=== PATIENT | male | born 1950 | race Caucasian/White ===

== ENCOUNTER 2017-02-24 19:51 | Inpatient (IN) | payer OTHER ==
[~2017-02-24] VITALS: Ht 195.6 cm; Wt 138.8 kg
[2017-02-24 19:51] VITALS: BP_SYST 108
[2017-02-24] MEDS ORDERED: NS 1000 ML BAG IV ONE (20:30)
[2017-02-24] MEDS ORDERED: KETOROLAC TROMETHAMINE 30 MG VIAL IVP ONE (20:30)
[2017-02-24 20:44] LABS: BASOPHILS % (AUTO) 0.2 % (0.0-2.0); EOSINOPHILS # (AUTO) 0.1 K/uL (0.0-0.4); EOSINOPHILS % (AUTO) 0.7 % (0.0-4.0); HEMATOCRIT 32.9 % (36-54); HEMOGLOBIN 11.2 g/dL (14.0-18.0); LYMPHOCYTES # (AUTO) 0.4 K/uL (1.0-5.5); MEAN CORPUSCULAR HEMOGLOBIN 31 pg (27-31); MEAN CORPUSCULAR HGB CONC 34 % (32-36); MEAN CORPUSCULAR VOLUME 90 fL (79.0-98.0); MONOCYTES # (AUTO) 0.6 K/uL (0.0-1.0); NEUTROPHILS # (AUTO) 11.6 K/uL (1.8-7.7); NEUTROPHILS % (AUTO) 91.1 % (40.0-70.0); RED BLOOD CELL COUNT(AUTO) 3.67 MIL/uL (4.2-6.2); RED CELL DISTRIBUTION WIDTH 14.9 % (9.0-15.0); WHITE BLOOD COUNT (AUTO) 12.8 K/uL (4.8-10.8)
[2017-02-24 20:49] LABS: INR 1.4 (0.80-1.20); PROTHROMBIN TIME 14.9 SECS (9.5-12.5)
[2017-02-24 21:01] LABS: PLATELET COUNT (AUTO) 93 K/uL (130-430)
[2017-02-24] MEDS ORDERED: PROP10TA10 PO (21:08)
[2017-02-24] MEDS ORDERED: LEVO25TA7 PO (21:08)
[2017-02-24] MEDS ORDERED: TERA5CAP58 PO (21:08)
[2017-02-24] MEDS ORDERED: HYDR-3698 PO (21:08)
[2017-02-24] MEDS ORDERED: HYT1 GT (21:08)
[2017-02-24] MEDS ORDERED: CETI-354 PO (21:08)
[2017-02-24] MEDS ORDERED: OMEP40CA33 PO (21:08)
[2017-02-24] MEDS ORDERED: VITD2000 PO ×2 (21:08)
[2017-02-24] MEDS ORDERED: LACT10SO6 PO (21:08)
[2017-02-24] MEDS ORDERED: LIP10 PO (21:08)
[2017-02-24] MEDS ORDERED: MAGN400T10 PO (21:08)
[2017-02-24] MEDS ORDERED: MIRT15TA7 PO (21:08)
[2017-02-24] MEDS ORDERED: ALBU2.5V7 INH (21:08)
[2017-02-24] MEDS ORDERED: GABA-531 PO (21:08)
[2017-02-24] MEDS ORDERED: FERR-57 PO (21:08)
[2017-02-24] MEDS ORDERED: SPIR25TA4 PO (21:08)
[2017-02-24] MEDS ORDERED: MORPHINE 4 MG/ML INJ. SYRINGE IVP ONE (22:15)
[2017-02-24] MEDS ORDERED: PIPERACILLIN/TAZO 3.375 GM in NS 50 ML IV ONE (22:30)
[2017-02-24] MEDS ORDERED: VANCOMYCIN HCL 1,000 MG in NS 250 ML IV ONE (22:30)
[2017-02-24 22:31] LABS: BLOOD, URINE 1+ (NEGATIVE); COLOR,URINE AMBER (YELLOW); GLUCOSE,URINE NEGATIVE (NEGATIVE); KETONES,URINE TRACE (NEGATIVE); LEUKOCYTE ESTERASE ,URINE NEGATIVE (NEGATIVE); NITRITE, URINE NEGATIVE (NEGATIVE); PH,URINE 5.5 (5.0-8.0); PROTEIN URINE 2+ (NEGATIVE)
[2017-02-24 22:37] LABS: BILIRUBIN,URINE NEGATIVE (NEGATIVE); CLARITY/URINE HAZY (CLEAR)
[2017-02-24 22:39] LABS: BACTERIA,URINE FEW /HPF (None Seen); HYALINE CASTS, URINE 0-10 /LPF (None Seen); MUCUS,URINE None Seen /LPF (None Seen); RBC,URINE 0-3 /HPF (0-3); WBC,URINE 0-3 /HPF (0-3)
[2017-02-24] MEDS ORDERED: VANCOMYCIN HCL 1000 MG/VIAL IV ONE ×2 (22:49)
[2017-02-24] MEDS ORDERED: PIPERACILLIN/TAZOBACTAM 3.375 GM/VIAL (ZOSYN) IV ONE (22:50)
[2017-02-24 22:57] LABS: CALCIUM 8.2 mg/dL (8.4-11.0); CREATININE 1.7 mg/dL (0.55-1.30); POTASSIUM 3.9 mmol/L (3.5-5.1)
[2017-02-24 23:03] LABS: TOTAL BILIRUBIN 2.9 mg/dL (0.0-1.0); TOTAL PROTEIN, SERUM 7.7 g/dL (6.4-8.3)
[2017-02-24 23:10] VITALS: BP_SYST 113
[2017-02-24 23:50] VITALS: BP_SYST 125
[2017-02-25 04:50] VITALS: BP_SYST 136
[2017-02-25 10:11] VITALS: BP_SYST 133
[2017-02-25] MEDS ORDERED: ALBUTEROL SULFATE 0.083% 2.5 MG/3 ML VIAL.NEB INH PRN (11:15)
[2017-02-25] MEDS ORDERED: INSULIN REGULAR, HUMAN 100 UNITS/ML, 10 ML VIAL (novoLIN R) SUBCUT PRN (11:15)
[2017-02-25] MEDS ORDERED: DEXTROSE 50% JECT 50 ML DISP.SYRIN IVP PRN (11:15)
[2017-02-25 11:28] LABS: BASOPHILS # (AUTO) 0.1 K/uL (0.0-0.2); BASOPHILS % (AUTO) 0.6 % (0.0-2.0); EOSINOPHILS # (AUTO) 0.2 K/uL (0.0-0.4); EOSINOPHILS % (AUTO) 2.2 % (0.0-4.0); HEMATOCRIT 30.8 % (36-54); HEMOGLOBIN 10.1 g/dL (14.0-18.0); LYMPHOCYTES # (AUTO) 0.6 K/uL (1.0-5.5); LYMPHOCYTES % (AUTO) 5.6 % (20.5-51.5); MEAN CORPUSCULAR HEMOGLOBIN 29 pg (27-31); MEAN CORPUSCULAR HGB CONC 33 % (32-36); MEAN CORPUSCULAR VOLUME 89 fL (79.0-98.0); MONOCYTES # (AUTO) 0.9 K/uL (0.0-1.0); MONOCYTES % (AUTO) 8.3 % (1.7-9.3); NEUTROPHILS # (AUTO) 8.6 K/uL (1.8-7.7); NEUTROPHILS % (AUTO) 83.3 % (40.0-70.0); PLATELET COUNT (AUTO) 77 K/uL (130-430); RED BLOOD CELL COUNT(AUTO) 3.44 MIL/uL (4.2-6.2); RED CELL DISTRIBUTION WIDTH 15.3 % (9.0-15.0); WHITE BLOOD COUNT (AUTO) 10.4 K/uL (4.8-10.8)
[2017-02-25 11:36] LABS: CALCIUM 7.6 mg/dL (8.4-11.0); CREATININE 1.35 mg/dL (0.55-1.30); POTASSIUM 3.6 mmol/L (3.5-5.1)
[2017-02-25] MEDS ORDERED: GABAPENTIN 100 MG CAPSULE PO ONE (11:45)
[2017-02-25] MEDS ORDERED: CHOLECALCIFEROL (VITAMIN D3) 2,000 UNIT TABLET PO ONE (11:45)
[2017-02-25 12:20] VITALS: BP_SYST 132
[2017-02-25] MEDS: FERROUS SULFATE 325 MG TABLET.DR PO SCH ×2 (14:36→21:48)
[2017-02-25] MEDS: GABAPENTIN 300 MG CAPSULE PO SCH ×2 (14:36→21:48)
[2017-02-25] MEDS: PIPERACILLIN/TAZO 3.375/DEX-IS 50 ML IV SCH ×2 (14:37→21:48)
[2017-02-25 16:28] VITALS: BP_SYST 135
[2017-02-25 16:30] VITALS: BP_SYST 132
[2017-02-25 20:00] VITALS: BP_SYST 138
[2017-02-25] MEDS: LACTOBACILLUS RHAMNOSUS GG 1 CAP CAPSULE PO SCH (21:48)
[2017-02-25] MEDS: TERAZOSIN HCL 5 MG CAPSULE (HYTRIN) PO SCH (21:49)
[2017-02-25] MEDS: PROPRANOLOL HCL 10 MG TABLET (INDERAL) PO SCH (21:49)
[2017-02-25] MEDS: MIRTAZAPINE 15 MG TABLET PO SCH (21:49)
[2017-02-26 00:14] VITALS: BP_SYST 128
[2017-02-26 03:29] VITALS: BP_SYST 114
[2017-02-26] MEDS: PIPERACILLIN/TAZO 3.375/DEX-IS 50 ML IV SCH ×3 (05:07→21:39)
[2017-02-26] MEDS: LEVOTHYROXINE SODIUM 0.025 MG TABLET PO SCH (06:40)
[2017-02-26 07:47] LABS: BASOPHILS # (AUTO) 0.1 K/uL (0.0-0.2); BASOPHILS % (AUTO) 0.6 % (0.0-2.0); EOSINOPHILS # (AUTO) 0.4 K/uL (0.0-0.4); HEMATOCRIT 28.9 % (36-54); LYMPHOCYTES # (AUTO) 0.8 K/uL (1.0-5.5)
[2017-02-26 08:20] LABS: EOSINOPHILS % (AUTO) 3.7 % (0.0-4.0); HEMOGLOBIN 9.9 g/dL (14.0-18.0); LYMPHOCYTES % (AUTO) 8.1 % (20.5-51.5); MEAN CORPUSCULAR HEMOGLOBIN 30 pg (27-31); MEAN CORPUSCULAR HGB CONC 34 % (32-36); MEAN CORPUSCULAR VOLUME 88 fL (79.0-98.0); MONOCYTES # (AUTO) 1.1 K/uL (0.0-1.0); MONOCYTES % (AUTO) 11.2 % (1.7-9.3); NEUTROPHILS # (AUTO) 7.6 K/uL (1.8-7.7); NEUTROPHILS % (AUTO) 76.4 % (40.0-70.0); PLATELET COUNT (AUTO) 89 K/uL (130-430); RED BLOOD CELL COUNT(AUTO) 3.27 MIL/uL (4.2-6.2)
[2017-02-26] MEDS: GABAPENTIN 300 MG CAPSULE PO SCH ×3 (08:22→21:33)
[2017-02-26] MEDS: OMEPRAZOLE 20 MG CAPSULE.DR (PriLOSEC) PO SCH (08:23)
[2017-02-26] MEDS: LACTOBACILLUS RHAMNOSUS GG 1 CAP CAPSULE PO SCH ×2 (08:23→21:34)
[2017-02-26] MEDS: MAGNESIUM OXIDE 400 MG TABLET PO SCH (08:23)
[2017-02-26] MEDS: PROPRANOLOL HCL 10 MG TABLET (INDERAL) PO SCH ×2 (08:24→21:35)
[2017-02-26] MEDS: CHOLECALCIFEROL (VITAMIN D3) 2,000 UNIT TABLET PO SCH (08:25)
[2017-02-26] MEDS: FERROUS SULFATE 325 MG TABLET.DR PO SCH ×3 (08:25→21:34)
[2017-02-26] MEDS: ATORVASTATIN 10 MG TABLET PO SCH (08:25)
[2017-02-26 08:30] VITALS: BP_SYST 118
[2017-02-26 10:12] LABS: CALCIUM 7.7 mg/dL (8.4-11.0); CREATININE 1.11 mg/dL (0.55-1.30); POTASSIUM 3.8 mmol/L (3.5-5.1)
[2017-02-26 10:17] LABS: ALBUMIN 2.6 g/dL (3.4-4.8); TOTAL BILIRUBIN 1.8 mg/dL (0.0-1.0); TOTAL PROTEIN, SERUM 6.8 g/dL (6.4-8.3)
[2017-02-26 12:17] VITALS: BP_SYST 117
[2017-02-26] MEDS: VANCOMYCIN HCL 1,500 MG in NS 250 ML IV SCH (14:53)
[2017-02-26 16:25] VITALS: BP_SYST 120
[2017-02-26] MEDS: IPRATROPIUM/ALBUTEROL SULFATE 3 ML AMPUL.NEB INH SCH ×3 (18:43→23:17)
[2017-02-26 20:00] VITALS: BP_SYST 134
[2017-02-26] MEDS: MIRTAZAPINE 15 MG TABLET PO SCH (21:34)
[2017-02-26] MEDS: TERAZOSIN HCL 5 MG CAPSULE (HYTRIN) PO SCH (21:35)
[2017-02-27] VITALS (7 sets, daily range): BP systolic 115–133
[2017-02-27] MEDS: VANCOMYCIN HCL 1,500 MG in NS 250 ML IV SCH ×2 (01:35→14:04)
[2017-02-27] MEDS: IPRATROPIUM/ALBUTEROL SULFATE 3 ML AMPUL.NEB INH SCH ×4 (03:00→19:39)
[2017-02-27] MEDS: PIPERACILLIN/TAZO 3.375/DEX-IS 50 ML IV SCH (05:44)
[2017-02-27] MEDS: LEVOTHYROXINE SODIUM 0.025 MG TABLET PO SCH (07:05)
[2017-02-27] MEDS: LACTOBACILLUS RHAMNOSUS GG 1 CAP CAPSULE PO SCH ×2 (09:15→20:55)
[2017-02-27] MEDS: FERROUS SULFATE 325 MG TABLET.DR PO SCH ×3 (09:15→20:55)
[2017-02-27] MEDS: MAGNESIUM OXIDE 400 MG TABLET PO SCH (09:15)
[2017-02-27] MEDS: OMEPRAZOLE 20 MG CAPSULE.DR (PriLOSEC) PO SCH (09:15)
[2017-02-27] MEDS: ATORVASTATIN 10 MG TABLET PO SCH (09:15)
[2017-02-27] MEDS: GABAPENTIN 300 MG CAPSULE PO SCH ×3 (09:16→20:55)
[2017-02-27] MEDS: PROPRANOLOL HCL 10 MG TABLET (INDERAL) PO SCH ×2 (09:16→20:55)
[2017-02-27] MEDS: CHOLECALCIFEROL (VITAMIN D3) 2,000 UNIT TABLET PO SCH (09:17)
[2017-02-27] MEDS: TERAZOSIN HCL 5 MG CAPSULE (HYTRIN) PO SCH (20:55)
[2017-02-27] MEDS: MIRTAZAPINE 15 MG TABLET PO SCH (20:56)
== END 2017-02-27 22:20 | DRG 871 ==
LOC: SED 19:51 → STU 22:48 → SMU 02-27 16:55
PROVIDERS: ADMIT Internal Medicine; ATTEND Internal Medicine
DX: A41.89 Other specified sepsis (principal); N17.0 Acute kidney failure with tubular necrosis; E87.1 Hypo-osmolality and hyponatremia; E44.0 Moderate protein-calorie malnutrition; D68.59 Other primary thrombophilia; L03.116 Cellulitis of left lower limb; L03.115 Cellulitis of right lower limb; D64.9 Anemia, unspecified; E11.42 Type 2 diabetes mellitus with diabetic polyneuropathy; N40.0 Benign prostatic hyperplasia without lower urinary tract symptoms; L97.509 Non-pressure chronic ulcer of other part of unspecified foot with unspecified severity; E11.621 Type 2 diabetes mellitus with foot ulcer; D69.6 Thrombocytopenia, unspecified; I87.8 Other specified disorders of veins; E66.9 Obesity, unspecified; I89.0 Lymphedema, not elsewhere classified; I87.2 Venous insufficiency (chronic) (peripheral); B18.2 Chronic viral hepatitis C; Z68.36 Body mass index [BMI] 36.0-36.9, adult; Z79.899 Other long term (current) drug therapy; K74.60 Unspecified cirrhosis of liver
CPT/HCPCS: 36415; 71010; 80048; 80053; 81000-TC; 82962; 83605; 83880; 84484; 85025; 85610-TC; 85730-TC; 87040-TC; 87086; 87186-TC; 93005; 93923; 93970; 94640; 94760; 96365; 96375; 97116-GP; 97530-GP; 99285; J1815; J1885; J2270; J2543; J3370; J7030; J7050

== ENCOUNTER 2017-03-08 19:10 | Inpatient (IN) | payer OTHER ==
[~2017-03-08] VITALS: Ht 195.6 cm; Wt 154.2 kg
[2017-03-08 19:10] VITALS: BP_SYST 124
[~2017-03-08 19:10] MED LIST: ALBU2.5V7 INH; CETI-354 PO; FERR-57 PO; GABA-531 PO; HYDR-3698 PO; HYT1 GT; LACT10SO6 PO; LEVO25TA7 PO; LIP10 PO; MAGN400T10 PO; MIRT15TA7 PO; OMEP40CA33 PO; PROP10TA10 PO; SPIR25TA4 PO; TERA5CAP58 PO; VITD2000 PO
[2017-03-08 19:57] LABS: BASOPHILS # (AUTO) 0.1 K/uL (0.0-0.2); BASOPHILS % (AUTO) 0.6 % (0.0-2.0); EOSINOPHILS # (AUTO) 0.2 K/uL (0.0-0.4); EOSINOPHILS % (AUTO) 1.9 % (0.0-4.0); HEMATOCRIT 29.3 % (36-54); HEMOGLOBIN 9.6 g/dL (14.0-18.0); LYMPHOCYTES # (AUTO) 0.7 K/uL (1.0-5.5); LYMPHOCYTES % (AUTO) 6.7 % (20.5-51.5); MEAN CORPUSCULAR HEMOGLOBIN 29 pg (27-31); MEAN CORPUSCULAR HGB CONC 33 % (32-36); MEAN CORPUSCULAR VOLUME 89 fL (79.0-98.0); MONOCYTES # (AUTO) 0.6 K/uL (0.0-1.0); MONOCYTES % (AUTO) 5.7 % (1.7-9.3); NEUTROPHILS # (AUTO) 8.8 K/uL (1.8-7.7); NEUTROPHILS % (AUTO) 85.1 % (40.0-70.0); PLATELET COUNT (AUTO) 112 K/uL (130-430); RED CELL DISTRIBUTION WIDTH 15.3 % (9.0-15.0); WHITE BLOOD COUNT (AUTO) 10.4 K/uL (4.8-10.8)
[2017-03-08 20:15] LABS: CALCIUM 8.4 mg/dL (8.4-11.0); CHLORIDE 105 mmol/L (98-107); CREATININE 1.53 mg/dL (0.55-1.30); GLUCOSE 174 mg/dL (70-99); SODIUM SERUM 132 mmol/L (136-145); UREA NITROGEN, BLOOD 42 mg/dL (8-21)
[2017-03-08 20:18] LABS: INR 1.4 (0.80-1.20)
[2017-03-08 20:19] LABS: GFR AFRICAN AMERICAN 59 mL/min (>90)
[2017-03-08 20:30] LABS: POTASSIUM 5.9 mmol/L (3.5-5.1)
[2017-03-08 20:31] LABS: ANION GAP < 3 (5-15)
[2017-03-08 20:38] LABS: ALANINE AMINOTRANSFERASE 58 U/L (12-78); ALBUMIN 2.8 g/dL (3.4-4.8); ASPARTATE AMINOTRANSFERASE 74 U/L (10-37); TOTAL BILIRUBIN 1.4 mg/dL (0.0-1.0)
[2017-03-08 20:39] LABS: ACETAMINOPHEN < 1 ug/mL (1-30); ALCOHOL, BLOOD < 3 mg/dL (<10); SALICYLATE < 1 mg/dL (3-30)
[2017-03-08 20:55] LABS: OPIATE, URINE POSITIVE (NEG <=100)
[2017-03-08 20:56] LABS: BARBITURATE, URINE NEGATIVE (NEG <=200); BENZODIAZEPINE, URINE NEGATIVE (NEG <=150); CANNABINOID, URINE NEGATIVE (NEG <=50); COCAINE, URINE NEGATIVE (NEG <=150); METHAMPHETAMINES SCREEN,URINE NEGATIVE (NEG <=500); PHENCYCLIDINE SCREEN,URINE NEGATIVE (NEG <=25); UR TRICYCLIC ANTIDEPRESSANTS NEGATIVE (NEG <=300); URINE AMPHETAMINE NEGATIVE (NEG <=500); URINE METHADONE NEGATIVE (NEG <=200); URINE OXYCODONE SCREEN NEGATIVE (NEG <=100); URINE PROPOXYPHENE SCREEN NEGATIVE (NEG <=300)
[2017-03-08] MEDS ORDERED: INSULIN REGULAR, HUMAN 10 UNITS/0.1 ML INJ IVP ONE (21:15)
[2017-03-08] MEDS ORDERED: DEXTROSE 50% JECT 50 ML DISP.SYRIN IVP ONE (21:15)
[2017-03-08] MEDS ORDERED: LACTULOSE 20 GM/30 ML UDC PO ONE (22:45)
[2017-03-08 22:49] VITALS: BP_SYST 115
[2017-03-08 23:00] VITALS: BP_SYST 115
[2017-03-08] MEDS ORDERED: DEXTROSE 50% JECT 50 ML DISP.SYRIN IVP PRN (23:30)
[2017-03-08] MEDS ORDERED: SODIUM POLYSTYRENE SULFONATE 15 GM/60 ML UDBTL PO ONE (23:30)
[2017-03-09] VITALS (8 sets, daily range): BP systolic 111–167
[2017-03-09] MEDS: D5/0.45 NS 1,000 ML IV SCH ×4 (02:03→21:48)
[2017-03-09] MEDS: LACTULOSE 20 GM/30 ML UDC PO SCH ×5 (02:08→21:25)
[2017-03-09] MEDS: NEOMYCIN SULFATE 500 MG TABLET PO SCH ×4 (02:12→17:42)
[2017-03-09] MEDS: INSULIN REGULAR, HUMAN 100 UNITS/ML, 10 ML VIAL (novoLIN R) SUBCUT PRN ×4 (06:25→21:43)
[2017-03-09] MEDS ORDERED: CHOLECALCIFEROL (VITAMIN D3) 2,000 UNIT TABLET PO SCH (09:00)
[2017-03-09] MEDS ORDERED: MAGNESIUM OXIDE 400 MG TABLET PO SCH (09:00)
[2017-03-09] MEDS ORDERED: LEVOTHYROXINE SODIUM 0.025 MG TABLET PO SCH (09:00)
[2017-03-09 10:33] LABS: BASOPHILS # (AUTO) 0.1 K/uL (0.0-0.2); BASOPHILS % (AUTO) 0.5 % (0.0-2.0); EOSINOPHILS # (AUTO) 0.2 K/uL (0.0-0.4); EOSINOPHILS % (AUTO) 1.3 % (0.0-4.0); HEMATOCRIT 31.5 % (36-54); HEMOGLOBIN 10.4 g/dL (14.0-18.0); LYMPHOCYTES # (AUTO) 0.9 K/uL (1.0-5.5); LYMPHOCYTES % (AUTO) 7.1 % (20.5-51.5); MEAN CORPUSCULAR HEMOGLOBIN 30 pg (27-31); MEAN CORPUSCULAR HGB CONC 33 % (32-36); MEAN CORPUSCULAR VOLUME 90 fL (79.0-98.0); MONOCYTES # (AUTO) 0.9 K/uL (0.0-1.0); MONOCYTES % (AUTO) 7.3 % (1.7-9.3); NEUTROPHILS # (AUTO) 10.1 K/uL (1.8-7.7); NEUTROPHILS % (AUTO) 83.8 % (40.0-70.0); PLATELET COUNT (AUTO) 130 K/uL (130-430); RED BLOOD CELL COUNT(AUTO) 3.52 MIL/uL (4.2-6.2); RED CELL DISTRIBUTION WIDTH 15.3 % (9.0-15.0); WHITE BLOOD COUNT (AUTO) 12.2 K/uL (4.8-10.8)
[2017-03-09] MEDS: OMEPRAZOLE 20 MG CAPSULE.DR (PriLOSEC) PO SCH (10:48)
[2017-03-09] MEDS: CHOLECALCIFEROL (VITAMIN D3) 2,000 UNIT TABLET PO SCH (10:49)
[2017-03-09] MEDS: ATORVASTATIN 10 MG TABLET PO SCH (10:49)
[2017-03-09] MEDS: FERROUS SULFATE 325 MG TABLET.DR PO SCH ×3 (10:49→21:27)
[2017-03-09] MEDS: PROPRANOLOL HCL 10 MG TABLET (INDERAL) PO SCH ×2 (10:50→21:26)
[2017-03-09 10:53] LABS: CALCIUM 8.6 mg/dL (8.4-11.0); CHLORIDE 108 mmol/L (98-107); CREATININE 1.47 mg/dL (0.55-1.30); GLUCOSE 203 mg/dL (70-99); POTASSIUM 4.8 mmol/L (3.5-5.1); SODIUM SERUM 136 mmol/L (136-145); THYROID STIMULATING HORMONE 6.37 uIu/mL (0.34-4.82); UREA NITROGEN, BLOOD 38 mg/dL (8-21)
[2017-03-09 10:54] LABS: ANION GAP < 3 (5-15); GFR AFRICAN AMERICAN 62 mL/min (>90)
[2017-03-09] MEDS ORDERED: TERAZOSIN HCL 1 MG CAPSULE (HYTRIN) GT SCH (21:00)
[2017-03-09] MEDS: TERAZOSIN HCL 1 MG CAPSULE (HYTRIN) PO SCH (21:31)
[2017-03-09] MEDS: ALBUTEROL SULFATE 0.083% 2.5 MG/3 ML VIAL.NEB INH PRN (23:31)
[2017-03-10] VITALS (7 sets, daily range): BP systolic 128–156
[2017-03-10] MEDS: NEOMYCIN SULFATE 500 MG TABLET PO SCH ×5 (01:12→23:17)
[2017-03-10] MEDS: LEVOTHYROXINE SODIUM 0.05 MG TABLET PO SCH (06:07)
[2017-03-10] MEDS: INSULIN REGULAR, HUMAN 100 UNITS/ML, 10 ML VIAL (novoLIN R) SUBCUT PRN ×2 (06:41→13:03)
[2017-03-10 07:17] LABS: BASOPHILS # (AUTO) 0.1 K/uL (0.0-0.2); BASOPHILS % (AUTO) 0.8 % (0.0-2.0); EOSINOPHILS # (AUTO) 0.3 K/uL (0.0-0.4); EOSINOPHILS % (AUTO) 2.4 % (0.0-4.0); HEMATOCRIT 30.1 % (36-54); HEMOGLOBIN 10.1 g/dL (14.0-18.0); LYMPHOCYTES # (AUTO) 0.9 K/uL (1.0-5.5); LYMPHOCYTES % (AUTO) 7.9 % (20.5-51.5); MEAN CORPUSCULAR HEMOGLOBIN 30 pg (27-31); MEAN CORPUSCULAR HGB CONC 34 % (32-36); MEAN CORPUSCULAR VOLUME 90 fL (79.0-98.0); MONOCYTES # (AUTO) 0.8 K/uL (0.0-1.0); MONOCYTES % (AUTO) 7.1 % (1.7-9.3); NEUTROPHILS # (AUTO) 9.4 K/uL (1.8-7.7); NEUTROPHILS % (AUTO) 81.8 % (40.0-70.0); PLATELET COUNT (AUTO) 117 K/uL (130-430); RED BLOOD CELL COUNT(AUTO) 3.36 MIL/uL (4.2-6.2); RED CELL DISTRIBUTION WIDTH 16.6 % (9.0-15.0); WHITE BLOOD COUNT (AUTO) 11.5 K/uL (4.8-10.8)
[2017-03-10 07:46] LABS: ALBUMIN 2.6 g/dL (3.4-4.8); CALCIUM 8.5 mg/dL (8.4-11.0); CREATININE 1.22 mg/dL (0.55-1.30); PHOSPHORUS 3.6 mg/dL (2.7-4.5); POTASSIUM 4.1 mmol/L (3.5-5.1); TOTAL BILIRUBIN 2.2 mg/dL (0.0-1.0); TOTAL PROTEIN, SERUM 7.9 g/dL (6.4-8.3)
[2017-03-10] MEDS: MAGNESIUM OXIDE 400 MG TABLET PO SCH (09:00)
[2017-03-10] MEDS: FERROUS SULFATE 325 MG TABLET.DR PO SCH ×3 (09:39→21:42)
[2017-03-10] MEDS: LACTULOSE 20 GM/30 ML UDC PO SCH ×3 (09:39→21:43)
[2017-03-10] MEDS: OMEPRAZOLE 20 MG CAPSULE.DR (PriLOSEC) PO SCH (09:40)
[2017-03-10] MEDS: PROPRANOLOL HCL 10 MG TABLET (INDERAL) PO SCH ×2 (09:40→21:43)
[2017-03-10] MEDS: ATORVASTATIN 10 MG TABLET PO SCH (09:40)
[2017-03-10] MEDS: CHOLECALCIFEROL (VITAMIN D3) 2,000 UNIT TABLET PO SCH (09:41)
[2017-03-10] MEDS: D5/0.45 NS 1,000 ML IV SCH ×2 (13:58→21:41)
[2017-03-10] MEDS: traMADol HCL HCL 50 MG TABLET (ULTRAM) PO PRN (19:54)
[2017-03-10] MEDS: TERAZOSIN HCL 1 MG CAPSULE (HYTRIN) PO SCH (21:42)
[2017-03-11 00:30] VITALS: BP_SYST 134; BP_SYST 99
[2017-03-11] MEDS: ALBUTEROL SULFATE 0.083% 2.5 MG/3 ML VIAL.NEB INH PRN (02:31)
[2017-03-11 04:16] VITALS: BP_SYST 106; BP_SYST 128
[2017-03-11] MEDS: LEVOTHYROXINE SODIUM 0.05 MG TABLET PO SCH (06:01)
[2017-03-11] MEDS: NEOMYCIN SULFATE 500 MG TABLET PO SCH ×3 (06:01→17:36)
[2017-03-11] MEDS: INSULIN REGULAR, HUMAN 100 UNITS/ML, 10 ML VIAL (novoLIN R) SUBCUT PRN ×2 (06:01→12:36)
[2017-03-11 06:38] LABS: BASOPHILS % (AUTO) 0.6 % (0.0-2.0); EOSINOPHILS # (AUTO) 0.3 K/uL (0.0-0.4); EOSINOPHILS % (AUTO) 3.7 % (0.0-4.0); HEMATOCRIT 28.9 % (36-54); HEMOGLOBIN 9.5 g/dL (14.0-18.0); LYMPHOCYTES # (AUTO) 0.7 K/uL (1.0-5.5); LYMPHOCYTES % (AUTO) 8.9 % (20.5-51.5); MEAN CORPUSCULAR HEMOGLOBIN 30 pg (27-31); MEAN CORPUSCULAR HGB CONC 33 % (32-36); MEAN CORPUSCULAR VOLUME 90 fL (79.0-98.0); MONOCYTES # (AUTO) 0.7 K/uL (0.0-1.0); MONOCYTES % (AUTO) 8.5 % (1.7-9.3); NEUTROPHILS # (AUTO) 6.6 K/uL (1.8-7.7); NEUTROPHILS % (AUTO) 78.3 % (40.0-70.0); PLATELET COUNT (AUTO) 107 K/uL (130-430); RED BLOOD CELL COUNT(AUTO) 3.21 MIL/uL (4.2-6.2); RED CELL DISTRIBUTION WIDTH 16.5 % (9.0-15.0); WHITE BLOOD COUNT (AUTO) 8.3 K/uL (4.8-10.8)
[2017-03-11 06:52] LABS: CALCIUM 8.1 mg/dL (8.4-11.0); CREATININE 1.17 mg/dL (0.55-1.30); POTASSIUM 4.1 mmol/L (3.5-5.1)
[2017-03-11] MEDS: FERROUS SULFATE 325 MG TABLET.DR PO SCH ×3 (09:11→21:29)
[2017-03-11] MEDS: LACTULOSE 20 GM/30 ML UDC PO SCH ×3 (09:11→21:29)
[2017-03-11] MEDS: PROPRANOLOL HCL 10 MG TABLET (INDERAL) PO SCH ×2 (09:12→21:30)
[2017-03-11] MEDS: OMEPRAZOLE 20 MG CAPSULE.DR (PriLOSEC) PO SCH (09:12)
[2017-03-11] MEDS: MAGNESIUM OXIDE 400 MG TABLET PO SCH ×3 (09:13→21:31)
[2017-03-11] MEDS: CHOLECALCIFEROL (VITAMIN D3) 2,000 UNIT TABLET PO SCH (09:13)
[2017-03-11] MEDS: ATORVASTATIN 10 MG TABLET PO SCH (09:13)
[2017-03-11 13:09] VITALS: BP_SYST 138
[2017-03-11] MEDS ORDERED: DOXYCYCLINE HYCLATE 100 MG CAPSULE PO ONE (13:15)
[2017-03-11 16:47] VITALS: BP_SYST 124
[2017-03-11 19:33] VITALS: BP_SYST 133
[2017-03-11] MEDS: TERAZOSIN HCL 1 MG CAPSULE (HYTRIN) PO SCH (21:30)
[2017-03-11] MEDS: DOXYCYCLINE HYCLATE 100 MG CAPSULE PO SCH (22:50)
[2017-03-11] MEDS: traMADol HCL HCL 50 MG TABLET (ULTRAM) PO PRN (22:51)
[2017-03-12] VITALS (7 sets, daily range): BP systolic 127–151
[2017-03-12] MEDS: NEOMYCIN SULFATE 500 MG TABLET PO SCH ×5 (00:15→23:15)
[2017-03-12] MEDS: LEVOTHYROXINE SODIUM 0.05 MG TABLET PO SCH (06:17)
[2017-03-12 06:46] LABS: BASOPHILS % (AUTO) 0.6 % (0.0-2.0); EOSINOPHILS # (AUTO) 0.3 K/uL (0.0-0.4); EOSINOPHILS % (AUTO) 4.2 % (0.0-4.0); HEMATOCRIT 28.5 % (36-54); HEMOGLOBIN 9.4 g/dL (14.0-18.0); LYMPHOCYTES # (AUTO) 0.7 K/uL (1.0-5.5); LYMPHOCYTES % (AUTO) 9.7 % (20.5-51.5); MEAN CORPUSCULAR HEMOGLOBIN 30 pg (27-31); MEAN CORPUSCULAR HGB CONC 33 % (32-36); MEAN CORPUSCULAR VOLUME 90 fL (79.0-98.0); MONOCYTES # (AUTO) 0.6 K/uL (0.0-1.0); MONOCYTES % (AUTO) 8.5 % (1.7-9.3); NEUTROPHILS # (AUTO) 5.4 K/uL (1.8-7.7); PLATELET COUNT (AUTO) 101 K/uL (130-430); RED BLOOD CELL COUNT(AUTO) 3.18 MIL/uL (4.2-6.2); RED CELL DISTRIBUTION WIDTH 16.9 % (9.0-15.0)
[2017-03-12 07:11] LABS: ALBUMIN 2.4 g/dL (3.4-4.8); CALCIUM 8.2 mg/dL (8.4-11.0); CREATININE 1.09 mg/dL (0.55-1.30); POTASSIUM 4.4 mmol/L (3.5-5.1); TOTAL BILIRUBIN 1.5 mg/dL (0.0-1.0); TOTAL PROTEIN, SERUM 7.3 g/dL (6.4-8.3)
[2017-03-12] MEDS: ALBUTEROL SULFATE 0.083% 2.5 MG/3 ML VIAL.NEB INH PRN (08:28)
[2017-03-12] MEDS: OMEPRAZOLE 20 MG CAPSULE.DR (PriLOSEC) PO SCH (09:02)
[2017-03-12] MEDS: CHOLECALCIFEROL (VITAMIN D3) 2,000 UNIT TABLET PO SCH (09:02)
[2017-03-12] MEDS: ATORVASTATIN 10 MG TABLET PO SCH (09:02)
[2017-03-12] MEDS: LACTULOSE 20 GM/30 ML UDC PO SCH ×3 (09:02→20:30)
[2017-03-12] MEDS: FERROUS SULFATE 325 MG TABLET.DR PO SCH ×3 (09:02→20:30)
[2017-03-12] MEDS: MAGNESIUM OXIDE 400 MG TABLET PO SCH ×3 (09:02→20:33)
[2017-03-12] MEDS: PROPRANOLOL HCL 10 MG TABLET (INDERAL) PO SCH ×2 (09:03→20:32)
[2017-03-12] MEDS: DOXYCYCLINE HYCLATE 100 MG CAPSULE PO SCH ×2 (11:11→23:15)
[2017-03-12] MEDS: traMADol HCL HCL 50 MG TABLET (ULTRAM) PO PRN (15:38)
[2017-03-12] MEDS: TERAZOSIN HCL 1 MG CAPSULE (HYTRIN) PO SCH (20:31)
[2017-03-13 00:09] VITALS: BP_SYST 123
[2017-03-13 03:54] VITALS: BP_SYST 119
[2017-03-13] MEDS: NEOMYCIN SULFATE 500 MG TABLET PO SCH ×4 (06:08→23:38)
[2017-03-13] MEDS: LEVOTHYROXINE SODIUM 0.05 MG TABLET PO SCH (06:09)
[2017-03-13 07:50] LABS: BASOPHILS % (AUTO) 0.7 % (0.0-2.0); EOSINOPHILS # (AUTO) 0.2 K/uL (0.0-0.4); EOSINOPHILS % (AUTO) 4.5 % (0.0-4.0); HEMATOCRIT 29.5 % (36-54); HEMOGLOBIN 9.6 g/dL (14.0-18.0); LYMPHOCYTES # (AUTO) 0.7 K/uL (1.0-5.5); LYMPHOCYTES % (AUTO) 13.6 % (20.5-51.5); MEAN CORPUSCULAR HEMOGLOBIN 30 pg (27-31); MEAN CORPUSCULAR HGB CONC 33 % (32-36); MEAN CORPUSCULAR VOLUME 91 fL (79.0-98.0); MONOCYTES # (AUTO) 0.6 K/uL (0.0-1.0); MONOCYTES % (AUTO) 10.6 % (1.7-9.3); NEUTROPHILS # (AUTO) 3.9 K/uL (1.8-7.7); NEUTROPHILS % (AUTO) 70.6 % (40.0-70.0); RED BLOOD CELL COUNT(AUTO) 3.23 MIL/uL (4.2-6.2); RED CELL DISTRIBUTION WIDTH 17.1 % (9.0-15.0); WHITE BLOOD COUNT (AUTO) 5.4 K/uL (4.8-10.8)
[2017-03-13 08:04] LABS: CALCIUM 8.2 mg/dL (8.4-11.0); CREATININE 1.16 mg/dL (0.55-1.30); POTASSIUM 4.8 mmol/L (3.5-5.1)
[2017-03-13 08:24] LABS: PLATELET COUNT (AUTO) 91 K/uL (130-430)
[2017-03-13] MEDS: ALBUTEROL SULFATE 0.083% 2.5 MG/3 ML VIAL.NEB INH PRN ×2 (08:30→19:08)
[2017-03-13 09:55] VITALS: BP_SYST 119
[2017-03-13] MEDS: FERROUS SULFATE 325 MG TABLET.DR PO SCH ×3 (10:37→22:05)
[2017-03-13] MEDS: ATORVASTATIN 10 MG TABLET PO SCH (10:37)
[2017-03-13] MEDS: PROPRANOLOL HCL 10 MG TABLET (INDERAL) PO SCH ×2 (10:39→22:05)
[2017-03-13] MEDS: CHOLECALCIFEROL (VITAMIN D3) 2,000 UNIT TABLET PO SCH (10:39)
[2017-03-13] MEDS: LACTULOSE 20 GM/30 ML UDC PO SCH ×3 (10:40→22:04)
[2017-03-13] MEDS: MAGNESIUM OXIDE 400 MG TABLET PO SCH ×3 (10:41→22:04)
[2017-03-13] MEDS: OMEPRAZOLE 20 MG CAPSULE.DR (PriLOSEC) PO SCH (10:52)
[2017-03-13 12:13] VITALS: BP_SYST 125
[2017-03-13] MEDS: DOXYCYCLINE HYCLATE 100 MG CAPSULE PO SCH ×2 (15:57→22:25)
[2017-03-13 16:42] VITALS: BP_SYST 130
[2017-03-13 19:40] VITALS: BP_SYST 133
[2017-03-13] MEDS: TERAZOSIN HCL 1 MG CAPSULE (HYTRIN) PO SCH (22:06)
[2017-03-13] MEDS: traMADol HCL HCL 50 MG TABLET (ULTRAM) PO PRN (22:36)
[2017-03-14] VITALS: BP_SYST 113
[2017-03-14 04:23] VITALS: BP_SYST 108
[2017-03-14] MEDS: NEOMYCIN SULFATE 500 MG TABLET PO SCH ×2 (05:43→12:00)
[2017-03-14] MEDS: LEVOTHYROXINE SODIUM 0.05 MG TABLET PO SCH (06:32)
[2017-03-14 08:02] VITALS: BP_SYST 137
[2017-03-14] MEDS: MAGNESIUM OXIDE 400 MG TABLET PO SCH (08:48)
[2017-03-14] MEDS: FERROUS SULFATE 325 MG TABLET.DR PO SCH (08:48)
[2017-03-14] MEDS: ATORVASTATIN 10 MG TABLET PO SCH (08:48)
[2017-03-14] MEDS: LACTULOSE 20 GM/30 ML UDC PO SCH (08:48)
[2017-03-14] MEDS: CHOLECALCIFEROL (VITAMIN D3) 2,000 UNIT TABLET PO SCH (08:48)
[2017-03-14] MEDS: PROPRANOLOL HCL 10 MG TABLET (INDERAL) PO SCH (08:50)
[2017-03-14] MEDS: OMEPRAZOLE 20 MG CAPSULE.DR (PriLOSEC) PO SCH (08:50)
[2017-03-14] MEDS: DOXYCYCLINE HYCLATE 100 MG CAPSULE PO SCH (11:00)
[2017-03-14 12:26] VITALS: BP_SYST 137
[2017-03-14 12:30] VITALS: BP_SYST 129
== END 2017-03-14 12:53 | DRG 441 ==
LOC: SED 19:10 → STU 22:33 → SMU 03-12 17:40
PROVIDERS: ADMIT Internal Medicine; ATTEND Internal Medicine
DX: K72.01 Acute and subacute hepatic failure with coma (principal); E44.0 Moderate protein-calorie malnutrition; Z68.41 Body mass index [BMI] 40.0-44.9, adult; K74.60 Unspecified cirrhosis of liver; J44.9 Chronic obstructive pulmonary disease, unspecified; N28.9 Disorder of kidney and ureter, unspecified; E87.5 Hyperkalemia; B19.20 Unspecified viral hepatitis C without hepatic coma; E11.21 Type 2 diabetes mellitus with diabetic nephropathy; I10 Essential (primary) hypertension; E66.9 Obesity, unspecified; E03.9 Hypothyroidism, unspecified; I87.8 Other specified disorders of veins; Z79.899 Other long term (current) drug therapy; Z79.51 Long term (current) use of inhaled steroids
CPT/HCPCS: 36415; 70450-TC; 71010; 80048; 80053; 80307; 82140-TC; 82306; 82962; 83735-TC; 84100-TC; 84443-TC; 84484; 85025; 85610-TC; 85730-TC; 87081; 93005; 94640; 94760; 96374; 96375; 97110-GP; 97116-GP; 97530-GP; 99285; G0480; G0481; G0482; J1815

== ENCOUNTER 2017-04-01 18:56 | Inpatient (IN) | payer OTHER ==
[~2017-04-01] VITALS: Ht 195.6 cm; Wt 142.6 kg
[~2017-04-01 18:56] MED LIST changes: -ALBU2.5V7 INH; -CETI-354 PO; -GABA-531 PO; -HYDR-3698 PO; -HYT1 GT; -LACT10SO6 PO; +LACT10SO66 PO; -LEVO25TA7 PO; +LEVO50TA77 PO; -LIP10 PO; -MIRT15TA7 PO; +NEOM500T PO; -OMEP40CA33 PO; +PRO40 PO; -SPIR25TA4 PO; +SPIR50TA PO; -TERA5CAP58 PO
[2017-04-01 19:00] VITALS: BP_SYST 168
[2017-04-01] MEDS ORDERED: IPRATROPIUM/ALBUTEROL SULFATE 3 ML AMPUL.NEB INH ONE (19:15)
[2017-04-01] MEDS ORDERED: methylPREDNISolone SOD SUCC/PF 62.5 MG/ML VIAL ONE (19:15)
[2017-04-01] MEDS ORDERED: methylPREDNISolone SOD SUCC/PF 62.5 MG/ML VIAL IM ONE (19:15)
[2017-04-01] MEDS ORDERED: IPRATROPIUM/ALBUTEROL SULFATE 3 ML AMPUL.NEB ONE (19:19)
[2017-04-01 19:37] LABS: BASOPHILS # (AUTO) 0.3 K/uL (0.0-0.2); BASOPHILS % (AUTO) 3.5 % (0.0-2.0); EOSINOPHILS # (AUTO) 0.4 K/uL (0.0-0.4); EOSINOPHILS % (AUTO) 4.4 % (0.0-4.0); HEMATOCRIT 36.6 % (36-54); HEMOGLOBIN 11.8 g/dL (14.0-18.0); LYMPHOCYTES % (AUTO) 11.8 % (20.5-51.5); MEAN CORPUSCULAR HEMOGLOBIN 30 pg (27-31); MEAN CORPUSCULAR HGB CONC 32 % (32-36); MEAN CORPUSCULAR VOLUME 92 fL (79.0-98.0); MONOCYTES # (AUTO) 0.6 K/uL (0.0-1.0); MONOCYTES % (AUTO) 7.6 % (1.7-9.3); NEUTROPHILS # (AUTO) 6.1 K/uL (1.8-7.7); NEUTROPHILS % (AUTO) 72.7 % (40.0-70.0); PLATELET COUNT (AUTO) 108 K/uL (130-430); RED BLOOD CELL COUNT(AUTO) 3.98 MIL/uL (4.2-6.2); RED CELL DISTRIBUTION WIDTH 19.3 % (9.0-15.0); WHITE BLOOD COUNT (AUTO) 8.4 K/uL (4.8-10.8)
[2017-04-01 19:48] LABS: CALCIUM 8.7 mg/dL (8.4-11.0); CHLORIDE 105 mmol/L (98-107); CREATININE 1.25 mg/dL (0.55-1.30); GLUCOSE 116 mg/dL (70-99); POTASSIUM 5.4 mmol/L (3.5-5.1); SODIUM SERUM 138 mmol/L (136-145); UREA NITROGEN, BLOOD 16 mg/dL (8-21)
[2017-04-01 19:52] LABS: GFR AFRICAN AMERICAN 75 mL/min (>90)
[2017-04-01 19:53] LABS: ANION GAP < 3 (5-15)
[2017-04-01 19:59] LABS: ALANINE AMINOTRANSFERASE 54 U/L (12-78); ALBUMIN 3.1 g/dL (3.4-4.8); ASPARTATE AMINOTRANSFERASE 111 U/L (10-37); TOTAL BILIRUBIN 2.3 mg/dL (0.0-1.0)
[2017-04-01] MEDS ORDERED: PIPERACILLIN/TAZO 3.375 GM in NS 50 ML IV ONE (21:15)
[2017-04-01] MEDS ORDERED: ALBUTEROL SULFATE 0.083% 2.5 MG/3 ML VIAL.NEB INH ONE ×2 (21:15)
[2017-04-01] MEDS ORDERED: PIPERACILLIN/TAZOBACTAM 3.375 GM/VIAL (ZOSYN) IV ONE (21:34)
[2017-04-01] MEDS ORDERED: IPRATROPIUM/ALBUTEROL SULFATE 3 ML AMPUL.NEB INH PRN (22:00)
[2017-04-01 22:34] VITALS: BP_SYST 128
[2017-04-01] MEDS: traMADol HCL HCL 50 MG TABLET (ULTRAM) PO PRN (23:05)
[2017-04-01] MEDS: IPRATROPIUM/ALBUTEROL SULFATE 3 ML AMPUL.NEB INH SCH (23:09)
[2017-04-01] MEDS: PIPERACILLIN/TAZOBACTAM 3.375 GM/VIAL (ZOSYN) IV ONE (23:16)
[2017-04-01] MEDS: ENOXAPARIN SODIUM 30 MG/0.3 ML SYRINGE SUBCUT SCH (23:16)
[2017-04-01 23:32] VITALS: BP_SYST 134
[2017-04-02] MEDS: PIPERACILLIN/TAZOBACTAM 3.375 GM/VIAL (ZOSYN) IV ONE (00:56)
[2017-04-02] MEDS: PIPERACILLIN/TAZO 3.375/DEX-IS 50 ML IV SCH ×4 (01:01→17:57)
[2017-04-02] MEDS: IPRATROPIUM/ALBUTEROL SULFATE 3 ML AMPUL.NEB INH SCH ×6 (02:58→23:11)
[2017-04-02 03:52] VITALS: BP_SYST 110
[2017-04-02] MEDS: LEVOTHYROXINE SODIUM 0.05 MG TABLET PO SCH (06:03)
[2017-04-02 06:23] LABS: BASOPHILS % (AUTO) 0.2 % (0.0-2.0); EOSINOPHILS % (AUTO) 0.2 % (0.0-4.0); HEMATOCRIT 30.9 % (36-54); HEMOGLOBIN 10.1 g/dL (14.0-18.0); LYMPHOCYTES # (AUTO) 0.8 K/uL (1.0-5.5); LYMPHOCYTES % (AUTO) 8.3 % (20.5-51.5); MEAN CORPUSCULAR HEMOGLOBIN 30 pg (27-31); MEAN CORPUSCULAR HGB CONC 33 % (32-36); MEAN CORPUSCULAR VOLUME 92 fL (79.0-98.0); MONOCYTES # (AUTO) 0.5 K/uL (0.0-1.0); MONOCYTES % (AUTO) 4.9 % (1.7-9.3); NEUTROPHILS # (AUTO) 8.3 K/uL (1.8-7.7); NEUTROPHILS % (AUTO) 86.4 % (40.0-70.0); PLATELET COUNT (AUTO) 74 K/uL (130-430); RED BLOOD CELL COUNT(AUTO) 3.36 MIL/uL (4.2-6.2); RED CELL DISTRIBUTION WIDTH 18.4 % (9.0-15.0); WHITE BLOOD COUNT (AUTO) 9.6 K/uL (4.8-10.8)
[2017-04-02 06:48] LABS: ALBUMIN 2.4 g/dL (3.4-4.8); CALCIUM 8.3 mg/dL (8.4-11.0); CREATININE 1.46 mg/dL (0.55-1.30)
[2017-04-02 06:57] LABS: POTASSIUM 5.4 mmol/L (3.5-5.1)
[2017-04-02 08:30] VITALS: BP_SYST 133
[2017-04-02] MEDS: LACTULOSE 20 GM/30 ML UDC PO SCH ×3 (08:44→21:53)
[2017-04-02] MEDS: PANTOPRAZOLE SODIUM 40 MG TAB PO SCH (08:44)
[2017-04-02] MEDS: CHOLECALCIFEROL (VITAMIN D3) 2,000 UNIT TABLET PO SCH ×2 (08:44→22:03)
[2017-04-02] MEDS: MAGNESIUM OXIDE 400 MG TABLET PO SCH ×2 (08:45→21:55)
[2017-04-02] MEDS: FERROUS SULFATE 325 MG TABLET.DR PO SCH ×2 (08:45→21:53)
[2017-04-02] MEDS: PROPRANOLOL HCL 10 MG TABLET (INDERAL) PO SCH ×2 (08:45→21:55)
[2017-04-02] MEDS: NEOMYCIN SULFATE 500 MG TABLET PO SCH ×2 (08:45→21:53)
[2017-04-02] MEDS: SPIRONOLACTONE 50 MG TABLET (ALDACTONE) PO SCH (08:46)
[2017-04-02 12:44] VITALS: BP_SYST 122
[2017-04-02 16:19] VITALS: BP_SYST 132
[2017-04-02] MEDS ORDERED: DIPHENHYDRAMINE INJ 50 MG/ML VIAL IVP PRN (17:30)
[2017-04-02 20:00] VITALS: BP_SYST 128
[2017-04-02] MEDS: ENOXAPARIN SODIUM 30 MG/0.3 ML SYRINGE SUBCUT SCH (21:00)
[2017-04-02] MEDS: traMADol HCL HCL 50 MG TABLET (ULTRAM) PO PRN (21:54)
[2017-04-02 23:36] VITALS: BP_SYST 122
[2017-04-03] MEDS: PIPERACILLIN/TAZO 3.375/DEX-IS 50 ML IV SCH ×5 (00:14→23:14)
[2017-04-03] MEDS: IPRATROPIUM/ALBUTEROL SULFATE 3 ML AMPUL.NEB INH SCH ×6 (03:00→23:09)
[2017-04-03 03:24] VITALS: BP_SYST 122
[2017-04-03] MEDS: LEVOTHYROXINE SODIUM 0.05 MG TABLET PO SCH (06:39)
[2017-04-03 07:01] LABS: BASOPHILS % (AUTO) 0.2 % (0.0-2.0); EOSINOPHILS % (AUTO) 0.3 % (0.0-4.0); HEMATOCRIT 28.9 % (36-54); HEMOGLOBIN 9.5 g/dL (14.0-18.0); LYMPHOCYTES # (AUTO) 0.8 K/uL (1.0-5.5); LYMPHOCYTES % (AUTO) 7.8 % (20.5-51.5); MEAN CORPUSCULAR HEMOGLOBIN 30 pg (27-31); MEAN CORPUSCULAR HGB CONC 33 % (32-36); MEAN CORPUSCULAR VOLUME 92 fL (79.0-98.0); MONOCYTES # (AUTO) 0.8 K/uL (0.0-1.0); NEUTROPHILS # (AUTO) 8.2 K/uL (1.8-7.7); NEUTROPHILS % (AUTO) 83.7 % (40.0-70.0); PLATELET COUNT (AUTO) 81 K/uL (130-430); RED BLOOD CELL COUNT(AUTO) 3.16 MIL/uL (4.2-6.2); RED CELL DISTRIBUTION WIDTH 19.1 % (9.0-15.0); WHITE BLOOD COUNT (AUTO) 9.8 K/uL (4.8-10.8)
[2017-04-03 07:03] LABS: ALBUMIN 2.5 g/dL (3.4-4.8); CALCIUM 8.4 mg/dL (8.4-11.0); CREATININE 1.35 mg/dL (0.55-1.30); POTASSIUM 4.9 mmol/L (3.5-5.1); TOTAL BILIRUBIN 1.6 mg/dL (0.0-1.0)
[2017-04-03 08:00] VITALS: BP_SYST 132
[2017-04-03] MEDS: MAGNESIUM OXIDE 400 MG TABLET PO SCH ×2 (08:54→21:01)
[2017-04-03] MEDS: SPIRONOLACTONE 50 MG TABLET (ALDACTONE) PO SCH (08:55)
[2017-04-03] MEDS: NEOMYCIN SULFATE 500 MG TABLET PO SCH ×2 (08:55→21:00)
[2017-04-03] MEDS: PANTOPRAZOLE SODIUM 40 MG TAB PO SCH (08:56)
[2017-04-03] MEDS: CHOLECALCIFEROL (VITAMIN D3) 2,000 UNIT TABLET PO SCH ×2 (08:56→21:01)
[2017-04-03] MEDS: FERROUS SULFATE 325 MG TABLET.DR PO SCH ×2 (08:56→21:00)
[2017-04-03] MEDS: PROPRANOLOL HCL 10 MG TABLET (INDERAL) PO SCH ×2 (08:57→21:01)
[2017-04-03] MEDS: LACTULOSE 20 GM/30 ML UDC PO SCH ×3 (08:57→21:00)
[2017-04-03 11:34] VITALS: BP_SYST 126
[2017-04-03] MEDS: traMADol HCL HCL 50 MG TABLET (ULTRAM) PO PRN ×2 (16:11→17:40)
[2017-04-03 16:38] VITALS: BP_SYST 120
[2017-04-03] MEDS ORDERED: methylPREDNISolone SOD SUCC 40 MG/ML VIAL IVP SCH (18:00)
[2017-04-03 19:40] VITALS: BP_SYST 132
[2017-04-03] MEDS: ENOXAPARIN SODIUM 30 MG/0.3 ML SYRINGE SUBCUT SCH (21:00)
[2017-04-03] MEDS: methylPREDNISolone SOD SUCC 40 MG/ML VIAL IVP SCH (21:00)
[2017-04-03] MEDS ORDERED: DEXTROSE 50% JECT 50 ML DISP.SYRIN IVP PRN (21:30)
[2017-04-03] MEDS: INSULIN REGULAR, HUMAN 100 UNITS/ML, 10 ML VIAL (novoLIN R) SUBCUT PRN (23:07)
[2017-04-04] VITALS (7 sets, daily range): BP systolic 112–153
[2017-04-04] MEDS: IPRATROPIUM/ALBUTEROL SULFATE 3 ML AMPUL.NEB INH SCH ×6 (03:00→23:22)
[2017-04-04] MEDS: PIPERACILLIN/TAZO 3.375/DEX-IS 50 ML IV SCH ×4 (05:37→23:46)
[2017-04-04] MEDS: LEVOTHYROXINE SODIUM 0.05 MG TABLET PO SCH (06:31)
[2017-04-04] MEDS: INSULIN REGULAR, HUMAN 100 UNITS/ML, 10 ML VIAL (novoLIN R) SUBCUT PRN ×4 (06:45→21:27)
[2017-04-04] MEDS: PROPRANOLOL HCL 10 MG TABLET (INDERAL) PO SCH ×2 (08:35→21:24)
[2017-04-04] MEDS: SPIRONOLACTONE 50 MG TABLET (ALDACTONE) PO SCH (08:35)
[2017-04-04] MEDS: MAGNESIUM OXIDE 400 MG TABLET PO SCH ×2 (08:35→21:24)
[2017-04-04] MEDS: PANTOPRAZOLE SODIUM 40 MG TAB PO SCH (08:35)
[2017-04-04] MEDS: NEOMYCIN SULFATE 500 MG TABLET PO SCH (08:36)
[2017-04-04] MEDS: LACTULOSE 20 GM/30 ML UDC PO SCH ×3 (08:36→21:27)
[2017-04-04] MEDS: methylPREDNISolone SOD SUCC 40 MG/ML VIAL IVP SCH ×2 (08:36→21:23)
[2017-04-04] MEDS: CHOLECALCIFEROL (VITAMIN D3) 2,000 UNIT TABLET PO SCH ×2 (08:36→21:24)
[2017-04-04] MEDS: FERROUS SULFATE 325 MG TABLET.DR PO SCH ×2 (08:36→21:24)
[2017-04-04] MEDS: traMADol HCL HCL 50 MG TABLET (ULTRAM) PO PRN (08:51)
[2017-04-04] MEDS: RIFAXIMIN 550 MG TABLET PO SCH (21:24)
[2017-04-04] MEDS: ENOXAPARIN SODIUM 30 MG/0.3 ML SYRINGE SUBCUT SCH (21:24)
[2017-04-05 00:13] VITALS: BP_SYST 148
[2017-04-05] MEDS: IPRATROPIUM/ALBUTEROL SULFATE 3 ML AMPUL.NEB INH SCH ×4 (03:00→15:44)
[2017-04-05 03:37] VITALS: BP_SYST 142
[2017-04-05] MEDS: LEVOTHYROXINE SODIUM 0.05 MG TABLET PO SCH (06:36)
[2017-04-05] MEDS: PIPERACILLIN/TAZO 3.375/DEX-IS 50 ML IV SCH ×3 (06:37→17:24)
[2017-04-05] MEDS: INSULIN REGULAR, HUMAN 100 UNITS/ML, 10 ML VIAL (novoLIN R) SUBCUT PRN ×2 (06:39→11:59)
[2017-04-05 07:18] LABS: BASOPHILS % (AUTO) 0.1 % (0.0-2.0); EOSINOPHILS % (AUTO) 0.1 % (0.0-4.0); HEMATOCRIT 32.4 % (36-54); HEMOGLOBIN 10.7 g/dL (14.0-18.0); LYMPHOCYTES # (AUTO) 0.6 K/uL (1.0-5.5); LYMPHOCYTES % (AUTO) 5.7 % (20.5-51.5); MEAN CORPUSCULAR HEMOGLOBIN 30 pg (27-31); MEAN CORPUSCULAR HGB CONC 33 % (32-36); MEAN CORPUSCULAR VOLUME 92 fL (79.0-98.0); MONOCYTES # (AUTO) 0.6 K/uL (0.0-1.0); MONOCYTES % (AUTO) 5.1 % (1.7-9.3); NEUTROPHILS # (AUTO) 9.9 K/uL (1.8-7.7); RED BLOOD CELL COUNT(AUTO) 3.53 MIL/uL (4.2-6.2); RED CELL DISTRIBUTION WIDTH 18.9 % (9.0-15.0); WHITE BLOOD COUNT (AUTO) 11.1 K/uL (4.8-10.8)
[2017-04-05 07:39] LABS: ALANINE AMINOTRANSFERASE 61 U/L (12-78); ALBUMIN 2.8 g/dL (3.4-4.8); ASPARTATE AMINOTRANSFERASE 72 U/L (10-37); CALCIUM 9.1 mg/dL (8.4-11.0); CHLORIDE 102 mmol/L (98-107); CREATININE 1.38 mg/dL (0.55-1.30); GLUCOSE 294 mg/dL (70-99); SODIUM SERUM 132 mmol/L (136-145); TOTAL BILIRUBIN 1.7 mg/dL (0.0-1.0); UREA NITROGEN, BLOOD 28 mg/dL (8-21)
[2017-04-05 07:46] LABS: POTASSIUM 6.2 mmol/L (3.5-5.1)
[2017-04-05 07:47] LABS: ANION GAP < 3 (5-15); GFR AFRICAN AMERICAN 67 mL/min (>90)
[2017-04-05] MEDS ORDERED: SODIUM POLYSTYRENE SULFONATE 15 GM/60 ML UDBTL PO ONE (08:00)
[2017-04-05] MEDS: LACTULOSE 20 GM/30 ML UDC PO SCH ×2 (09:25→15:08)
[2017-04-05] MEDS: methylPREDNISolone SOD SUCC 40 MG/ML VIAL IVP SCH (09:30)
[2017-04-05] MEDS: PROPRANOLOL HCL 10 MG TABLET (INDERAL) PO SCH (09:30)
[2017-04-05] MEDS: RIFAXIMIN 550 MG TABLET PO SCH (09:31)
[2017-04-05] MEDS: CHOLECALCIFEROL (VITAMIN D3) 2,000 UNIT TABLET PO SCH (09:31)
[2017-04-05] MEDS: PANTOPRAZOLE SODIUM 40 MG TAB PO SCH (09:31)
[2017-04-05] MEDS: FERROUS SULFATE 325 MG TABLET.DR PO SCH (09:31)
[2017-04-05] MEDS: MAGNESIUM OXIDE 400 MG TABLET PO SCH (09:31)
[2017-04-05] MEDS: traMADol HCL HCL 50 MG TABLET (ULTRAM) PO PRN (09:42)
[2017-04-05 10:27] VITALS: BP_SYST 146
[2017-04-05] MEDS ORDERED: FUROSEMIDE 40 MG/4 ML VIAL IVP ONE (10:30)
[2017-04-05 10:38] LABS: PLATELET COUNT (AUTO) 93 K/uL (130-430)
[2017-04-05 12:24] VITALS: BP_SYST 148
[2017-04-05 14:36] VITALS: BP_SYST 146
[2017-04-05 16:02] VITALS: BP_SYST 136
== END 2017-04-05 17:59 | disposition short-term general hospital (02) | DRG 871 ==
LOC: SED 18:56 → STU 21:38
PROVIDERS: ADMIT Internal Medicine; ATTEND Internal Medicine
DX: A41.9 Sepsis, unspecified organism (principal); J86.9 Pyothorax without fistula; J96.21 Acute and chronic respiratory failure with hypoxia; J18.9 Pneumonia, unspecified organism; E11.21 Type 2 diabetes mellitus with diabetic nephropathy; E44.0 Moderate protein-calorie malnutrition; J91.8 Pleural effusion in other conditions classified elsewhere; D69.6 Thrombocytopenia, unspecified; J44.0 Chronic obstructive pulmonary disease with (acute) lower respiratory infection; J44.1 Chronic obstructive pulmonary disease with (acute) exacerbation; E87.5 Hyperkalemia; N19 Unspecified kidney failure; I87.8 Other specified disorders of veins; G89.4 Chronic pain syndrome; D63.8 Anemia in other chronic diseases classified elsewhere; E66.9 Obesity, unspecified; K70.30 Alcoholic cirrhosis of liver without ascites; B19.20 Unspecified viral hepatitis C without hepatic coma; E03.9 Hypothyroidism, unspecified; I10 Essential (primary) hypertension; Z87.891 Personal history of nicotine dependence; Z68.37 Body mass index [BMI] 37.0-37.9, adult; Z79.899 Other long term (current) drug therapy
CPT/HCPCS: 36415; 36600; 71010; 71250-TC; 76700-TC; 80053; 82105; 82140-TC; 82803-TC; 82962; 83605; 83880; 84132-TC; 84484; 85025; 85379; 87040-TC; 87081; 93005; 93970; 94640; 94760; 96372; 99291; J1030; J1650; J1815; J1940; J2543; J2930; J7050; J7060